=== PATIENT | female | born 1985 | race Two or more races ===

== ENCOUNTER 2024-03-14 22:49 | Inpatient (IN) | payer MEDICAID ==
[~2024-03-14] VITALS: Ht 170.2 cm; Wt 92.8 kg
[2024-03-14] MEDS ORDERED: MORPHINE SULFATE 4 MG/ML SYR/VIAL IM ONE (23:15)
[2024-03-14] MEDS ORDERED: ONDANSETRON HCL 4 MG/2 ML VIAL IM ONE (23:15)
[2024-03-14] MEDS: cloNIDine HCL 0.1 MG TAB PO ONE (23:16)
[2024-03-14 23:17] LABS: Basophils # (auto) 0 10 ^3/uL (0-0.2); Basophils % (auto) 0.3 % (0.0-2.0); Eosinophils # (auto) 0.1 10 ^3/uL (0-0.8); Eosinophils % (auto) 1.3 % (0.0-7.0); Hematocrit 40.9 % (36.0-46.0); Hemoglobin 13.8 g/dL (12.2-16.2); Lymphocytes # (auto) 2.7 10 ^3/uL (0.4-5.4); Lymphocytes % (auto) 39.1 % (10.0-50.0); Mean Corpuscular Hemoglobin 28.6 pg (28.0-32.0); Mean Corpuscular Hgb Conc. 33.8 g/dL (32.0-36.0); Mean Corpuscular Volume 84.6 fL (80.0-100.0); Monocytes # (auto) 0.5 10 ^3/uL (0-1.3); Monocytes % (auto) 7.7 % (0.0-12.0); Neutrophils # (auto) 3.5 10 ^3/uL (1.6-8.6); Neutrophils % (auto) 51.6 % (37.0-80.0); Nucleated Red Blood Cells % 0.1 %; Platelet Count (auto) 331 10^3/uL (140-450); Red Blood Cells 4.83 10^6/uL (4.0-5.20); Red Cell Distribution Width 13.9 % (11.8-14.3); White Blood Cell 6.8 10^3/uL (4.4-10.8)
[2024-03-14 23:39] LABS: Alanine Aminotransferase 14 U/L (7-40); Alkaline Phosphatase 105 U/L (46-116); Anion Gap 8 (5-15); Aspartate Aminotransferase 9 U/L (13-40); BUN/Creatinine Ratio 35.6 (10.0-20.0); Blood Urea Nitrogen 21 mg/dL (9-23); Calcium 10.3 mg/dL (8.7-10.4); Carbon Dioxide 25 mmol/L (20-30); Chloride 110 mmol/L (98-107); Glucose 96 mg/dL (74-106); Lipase 43 U/L (12-53); Potassium 4.4 mmol/L (3.5-5.1); Sodium 143 mmol/L (136-145)
[2024-03-14 23:40] LABS: Albumin 4.6 g/dL (3.2-4.8); Bilirubin, Total 0.2 mg/dL (0.2-1.0)
[2024-03-15] MEDS: ONDANSETRON HCL 4 MG/2 ML VIAL IV ONE ×2 (00:31→03:01)
[2024-03-15] MEDS: MORPHINE SULFATE 4 MG/ML SYR/VIAL IV ONE (00:32)
[2024-03-15] MEDS: hydrALAZINE HCL 20 MG/ML VL IV ONE (01:40)
[2024-03-15] MEDS: IOHEXOL 350 MG/ML 100ML IJ ONE (02:40)
[2024-03-15] MEDS: HYDROmorphone HCL 2 MG/ML VL/or syr IV ONE (03:01)
[2024-03-15] MEDS ORDERED: ONDANSETRON HCL 4 MG/2 ML VIAL IV PRN (03:45)
[2024-03-15] MEDS ORDERED: DOCUSATE SOD 100 MG CAP PO PRN (03:45)
[2024-03-15] MEDS ORDERED: NITROGLYCERIN 0.4 MG SL TAB SL PRN (04:00)
[2024-03-15] MEDS ORDERED: MORPHINE SULFATE INJ 2 MG/ml SYRG IV PRN (04:00)
[2024-03-15 04:09] VITALS: PULSE 71; RESP 16; O2SAT 98
[2024-03-15] MEDS: SODIUM CHLOR 0.9% PF (SALINE LOCK) 10ML VIAL/SYR IV SCH (05:51)
[2024-03-15] MEDS: MORPHINE SULFATE INJ 2 MG/ml SYRG IV PRN (06:17)
[2024-03-15 06:53] LABS: Basophils # (auto) 0 10 ^3/uL (0-0.2); Basophils % (auto) 0.2 % (0.0-2.0); Eosinophils # (auto) 0 10 ^3/uL (0-0.8); Eosinophils % (auto) 0.2 % (0.0-7.0); Hematocrit 39.8 % (36.0-46.0); Hemoglobin 13.7 g/dL (12.2-16.2); Lymphocytes # (auto) 1.4 10 ^3/uL (0.4-5.4); Lymphocytes % (auto) 12.7 % (10.0-50.0); Mean Corpuscular Hemoglobin 28.9 pg (28.0-32.0); Mean Corpuscular Hgb Conc. 34.4 g/dL (32.0-36.0); Mean Corpuscular Volume 84.1 fL (80.0-100.0); Monocytes # (auto) 0.7 10 ^3/uL (0-1.3); Monocytes % (auto) 6.8 % (0.0-12.0); Neutrophils # (auto) 8.7 10 ^3/uL (1.6-8.6); Neutrophils % (auto) 80.1 % (37.0-80.0); Nucleated Red Blood Cells % 0.1 %; Platelet Count (auto) 307 10^3/uL (140-450); Red Blood Cells 4.73 10^6/uL (4.0-5.20); Red Cell Distribution Width 14.2 % (11.8-14.3); White Blood Cell 10.9 10^3/uL (4.4-10.8)
[2024-03-15 06:56] LABS: Alanine Aminotransferase 12 U/L (7-40); Albumin 4.7 g/dL (3.2-4.8); Alkaline Phosphatase 88 U/L (46-116); Anion Gap 7 (5-15); Aspartate Aminotransferase < 8 U/L (13-40); Blood Urea Nitrogen 14 mg/dL (9-23); Calcium 9.5 mg/dL (8.7-10.4); Carbon Dioxide 26 mmol/L (20-30); Chloride 107 mmol/L (98-107); Glucose 95 mg/dL (74-106); Potassium 3.6 mmol/L (3.5-5.1); Sodium 140 mmol/L (136-145)
[2024-03-15 06:57] LABS: Bilirubin, Total 0.3 mg/dL (0.2-1.0)
[2024-03-15 07:40] VITALS: PULSE 70; RESP 15; O2SAT 98
[2024-03-15 08:23] LABS: Urine Bacteria FEW /hpf (None Seen); Urine Blood 3+ /uL (Negative); Urine Clarity Clear (Clear); Urine Color Colorless (Yellow); Urine Protein, UAD TRACE (Negative); Urine Specific Gravity 1.031 (1.001-1.035); Urine Urobilinogen Normal (Negative); Urine WBC 10 /hpf (0 - 5); Urine pH 6.5 (5.0-9.0)
[2024-03-15] MEDS: HYDROcodone-ACET 5/325MG TAB PO PRN (08:46)
[2024-03-15] MEDS: METOPROLOL TARTRATE 25 MG TAB PO SCH (11:07)
[2024-03-15 11:16] LABS: Amphetamine Screen, Urine Neg (NEGATIVE); Benzodiazephine Screen, Urine Neg (NEGATIVE)
[2024-03-15 11:17] LABS: Barbiturate Scree,Urine Neg (NEGATIVE); Cannabinoid Screen, Urine Neg (NEGATIVE); Cocaine Screen, Urine Neg (NEGATIVE); Opiate Scree,Urine Neg (NEGATIVE); Phencyclidine Screen, Urine Neg (NEGATIVE)
[2024-03-15] MEDS: TROLAMINE SALICYLATE 10% TOP CREAM TOP PRN (17:00)
[2024-03-15 19:30] VITALS: PULSE 82; RESP 11; O2SAT 97
[2024-03-15] MEDS: ACETAMINOPHEN 325 MG TAB PO PRN (19:44)
[2024-03-15 21:52] VITALS: BP 139/90; PULSE 67; RESP 22; TEMP 98.9; O2SAT 98
[2024-03-16 01:00] VITALS: BP 127/89; PULSE 79; RESP 22; TEMP 98.5; O2SAT 99
[2024-03-16 05:00] VITALS: BP 137/91; PULSE 75; RESP 20; TEMP 98.3; O2SAT 97
[2024-03-16 06:09] LABS: Basophils # (auto) 0 10 ^3/uL (0-0.2); Basophils % (auto) 0.3 % (0.0-2.0); Eosinophils # (auto) 0.1 10 ^3/uL (0-0.8); Eosinophils % (auto) 1.5 % (0.0-7.0); Hematocrit 40.3 % (36.0-46.0); Hemoglobin 13.7 g/dL (12.2-16.2); Lymphocytes # (auto) 2.5 10 ^3/uL (0.4-5.4); Lymphocytes % (auto) 39.9 % (10.0-50.0); Mean Corpuscular Hemoglobin 28.8 pg (28.0-32.0); Mean Corpuscular Hgb Conc. 34.1 g/dL (32.0-36.0); Mean Corpuscular Volume 84.4 fL (80.0-100.0); Monocytes # (auto) 0.5 10 ^3/uL (0-1.3); Monocytes % (auto) 8.1 % (0.0-12.0); Neutrophils # (auto) 3.2 10 ^3/uL (1.6-8.6); Neutrophils % (auto) 50.2 % (37.0-80.0); Nucleated Red Blood Cells % 0.1 %; Platelet Count (auto) 305 10^3/uL (140-450); Red Blood Cells 4.77 10^6/uL (4.0-5.20); Red Cell Distribution Width 14.1 % (11.8-14.3); White Blood Cell 6.4 10^3/uL (4.4-10.8)
[2024-03-16 06:27] LABS: Alanine Aminotransferase 12 U/L (7-40); Alkaline Phosphatase 74 U/L (46-116); Anion Gap 5 (5-15); Aspartate Aminotransferase < 8 U/L (13-40); BUN/Creatinine Ratio 21.2 (10.0-20.0); Blood Urea Nitrogen 14 mg/dL (9-23); Carbon Dioxide 27 mmol/L (20-30); Chloride 109 mmol/L (98-107); Glucose 86 mg/dL (74-106); Potassium 3.8 mmol/L (3.5-5.1); Sodium 141 mmol/L (136-145)
[2024-03-16 06:28] LABS: Bilirubin, Total 0.5 mg/dL (0.2-1.0); Total Protein 6.4 g/dL (5.7-8.2)
[2024-03-16 08:00] VITALS: PULSE 60; PULSE 71; RESP 20; O2SAT 97
[2024-03-16 09:00] VITALS: BP 147/101; PULSE 60; RESP 20; TEMP 97.9; O2SAT 97
[2024-03-16 11:36] VITALS: BP 147/101; PULSE 60; RESP 20; TEMP 36.6; O2SAT 97
[2024-03-16] MEDS: hydrALAZINE HCL 20 MG/ML VL IV PRN (12:53)
[2024-03-16] MEDS ORDERED: LISI20TA56 PO (13:55)
[2024-03-18 08:53] LABS: Hepatitis B Surface Antigen Negative (Negative)
[2024-03-18 09:14] LABS: Hepatitis C Antibody Negative (Negative)
== END 2024-03-16 15:20 | disposition home or self-care (01) | DRG 203 ==
LOC: ER 22:49 → TELE 03-15 03:57 → TELE-CENTR 03-15 21:52
PROVIDERS: ADMIT Nurse Practitioner Family; ATTEND Internal Medicine Geriatric Medicine
DX: M94.0 Chondrocostal junction syndrome [Tietze] (principal); E66.01 Morbid (severe) obesity due to excess calories; I16.1 Hypertensive emergency; M43.6 Torticollis; Z90.710 Acquired absence of both cervix and uterus; Z68.32 Body mass index [BMI] 32.0-32.9, adult
CPT/HCPCS: 36415; 71045; 71275; 80053; 80307; 81001; 81025; 83690; 83880; 84484; 85025; 85379; 86803; 87340; 93005; 93306; G0378; J2405